=== PATIENT | female | born 1990 | race Caucasian/White ===

== ENCOUNTER 2017-08-14 00:42 | Emergency (ER) | payer SELFPAY ==
[2017-08-14] MEDS: ONDANSETRON (ODT) 4 MG TAB ODT (02:10)
[2017-08-14] MEDS: ALPRAZOLAM 0.25 MG TAB PO (02:10)
[2017-08-14] MEDS: NAPHAZOLINE/PHENIRAMINE 15 ML OPH BOTH EYES (02:21)
== END 2017-08-14 03:25 | disposition home or self-care (01) ==
LOC: FTE 00:42
DX: J20.9 Acute bronchitis, unspecified (principal)
CPT/HCPCS: 99284